=== PATIENT | male | born 1935 | race Caucasian/White ===

== ENCOUNTER 2017-11-04 02:54 | Emergency (ER) | payer OTHER ==
[~2017-11-04] VITALS: Ht 180.3 cm; Wt 85.8 kg
[2017-11-04 04:09] VITALS: BP 158/77
== END 2017-11-04 04:09 | disposition home or self-care (01) ==
LOC: ED 02:54
DX: H10.9 Unspecified conjunctivitis (principal); E78.00 Pure hypercholesterolemia, unspecified; I10 Essential (primary) hypertension

== ENCOUNTER 2019-01-06 13:28 | Emergency (ER) | payer OTHER ==
[~2019-01-06] VITALS: Ht 180.3 cm; Wt 83.9 kg
[2019-01-06 13:34] VITALS: Ht 180.3 cm; Wt 83.9 kg
[2019-01-06 16:21] VITALS: BP 154/85
== END 2019-01-06 16:21 | disposition home or self-care (01) ==
LOC: ED 13:28
DX: S56.992A Other injury of unspecified muscles, fascia and tendons at forearm level, left arm, initial encounter (principal); I10 Essential (primary) hypertension; E78.00 Pure hypercholesterolemia, unspecified; H40.9 Unspecified glaucoma; W18.30XA Fall on same level, unspecified, initial encounter; Y93.89 Activity, other specified; Y92.89 Other specified places as the place of occurrence of the external cause; Y99.8 Other external cause status

== ENCOUNTER 2019-01-08 13:04 | Emergency (ER) | payer OTHER ==
[~2019-01-08] VITALS: Ht 180.3 cm; Wt 83.9 kg
[2019-01-08 13:28] VITALS: Ht 180.3 cm; Wt 83.9 kg
[2019-01-08 14:31] VITALS: BP 166/86
== END 2019-01-08 14:31 | disposition home or self-care (01) ==
LOC: ED 13:04
DX: Z48.01 Encounter for change or removal of surgical wound dressing (principal); I10 Essential (primary) hypertension; E78.00 Pure hypercholesterolemia, unspecified

== ENCOUNTER 2019-06-18 15:05 | Emergency (ER) | payer OTHER ==
[~2019-06-18] VITALS: Ht 180.3 cm; Wt 86.6 kg
[2019-06-18 15:14] VITALS: Ht 180.3 cm; Wt 86.6 kg
[2019-06-18 16:00] LABS: BASOPHIL % 0.6 % (0-2); PLATELET COUNT 175 x10^3mcL (130-400); RED CELL DISTRIBUTION WIDTH 13.8 % (11.5-14.5)
[2019-06-18 16:01] LABS: CALCIUM 8.3 mg/dL (8.5-10.1); CARBON DIOXIDE 31.3 mmol/L (21-32); CHLORIDE SERUM 99 mmol/L (98-107); GLUCOSE SERUM 85 mg/dL (74-106); POTASSIUM SERUM 4.5 mmol/L (3.5-5.1); SODIUM SERUM 135 mmol/L (136-145)
[2019-06-18 16:19] LABS: ALBUMIN 3.9 g/dL (3.4-5.0); ALKALINE PHOSPHATASE 53 U/L (46-116); ALT/SGPT 30 U/L (16-63); AST/SGOT 17 U/L (15-37); TOTAL PROTEIN, SERUM 6.9 g/dL (6.4-8.2)
[2019-06-18 18:00] VITALS: BP 146/69
== END 2019-06-18 18:00 | disposition home or self-care (01) ==
LOC: ED 15:05
DX: L03.032 Cellulitis of left toe (principal); I10 Essential (primary) hypertension; E78.00 Pure hypercholesterolemia, unspecified
CPT/HCPCS: J2543; J7030

== ENCOUNTER 2019-06-21 12:02 | Emergency (ER) | payer OTHER ==
[~2019-06-21] VITALS: Ht 180.3 cm; Wt 86.2 kg
[2019-06-21 12:17] VITALS: BP 159/71; Ht 180.3 cm; Wt 86.2 kg
== END 2019-06-21 13:18 | disposition home or self-care (01) ==
LOC: ED 12:02
DX: S90.422D Blister (nonthermal), left great toe, subsequent encounter (principal); X58.XXXD Exposure to other specified factors, subsequent encounter; I10 Essential (primary) hypertension; E78.00 Pure hypercholesterolemia, unspecified

== ENCOUNTER 2019-10-10 10:37 | Emergency (ER) | payer OTHER ==
[~2019-10-10] VITALS: Ht 180.3 cm; Wt 84.4 kg
[2019-10-10 10:51] VITALS: Ht 180.3 cm; Wt 84.4 kg
[2019-10-10 12:45] VITALS: BP 160/82
== END 2019-10-10 12:45 | disposition home or self-care (01) ==
LOC: ED 10:37
DX: L03.032 Cellulitis of left toe (principal); S90.31XA Contusion of right foot, initial encounter; E78.00 Pure hypercholesterolemia, unspecified; I10 Essential (primary) hypertension; X50.9XXA Other and unspecified overexertion or strenuous movements or postures, initial encounter; Y93.89 Activity, other specified; Y92.89 Other specified places as the place of occurrence of the external cause; Y99.8 Other external cause status

== ENCOUNTER 2020-01-10 12:40 | Emergency (ER) | payer OTHER ==
[2020-01-10 12:52] VITALS: Ht 180.3 cm
[2020-01-10 15:19] VITALS: BP 159/68
== END 2020-01-10 15:19 | disposition home or self-care (01) ==
LOC: ED 12:40
DX: L03.032 Cellulitis of left toe (principal); L60.0 Ingrowing nail; L08.9 Local infection of the skin and subcutaneous tissue, unspecified; I10 Essential (primary) hypertension; E78.00 Pure hypercholesterolemia, unspecified
CPT/HCPCS: J2001

== ENCOUNTER 2020-07-24 10:58 | Emergency (ER) | payer OTHER ==
[~2020-07-24] VITALS: Ht 182.9 cm; Wt 84.4 kg
[2020-07-24 11:23] VITALS: Ht 182.9 cm; Wt 84.4 kg
[2020-07-24 13:58] VITALS: BP 177/81
== END 2020-07-24 13:58 | disposition home or self-care (01) ==
LOC: ED 10:58
DX: H92.21 Otorrhagia, right ear (principal); D68.9 Coagulation defect, unspecified; I10 Essential (primary) hypertension; E78.00 Pure hypercholesterolemia, unspecified
CPT/HCPCS: 90715